=== PATIENT | female | born 1970 | race Two or more races ===

== ENCOUNTER → 2024-04-26 | Day surgery (SDC) | payer OTHER ==
[~2024-04-26] MED LIST: FENTANYL CITRATE/PF 100MCG/2 ML INJ ONE; FERROUS SULFAT325 MG PO; LEVOTHYROXINE50 MCG PO; LIDOCAINE HCL 2% LOCAL INJ 5 ML SDV VIAL INJ ONE; LIPITOR10 MG PO; LOSARTAN POTASS25 MG PO; METFORMIN HCL500 MG PO; PANTOPRAZOLE SO40 MG PO; PROPOFOL IV EMULSION 10 MG/ML 20 ML VIAL ONE
[2024-04-26] MEDS: LACTATED RINGER'S 1,000 ML ONE (13:21)
[2024-04-26 16:10] VITALS: BP 148/95; PULSE 98; RESP 15; TEMP 97.2; O2SAT 98
== END | disposition home or self-care (01) ==
LOC: OR 12:46
PROVIDERS: ATTEND Internal Medicine Gastroenterology
DX: K29.70 Gastritis, unspecified, without bleeding (principal); D13.2 Benign neoplasm of duodenum; K20.90 Esophagitis, unspecified without bleeding; K44.9 Diaphragmatic hernia without obstruction or gangrene; Z86.010 Personal history of colon polyps; D62 Acute posthemorrhagic anemia; I10 Essential (primary) hypertension; E11.9 Type 2 diabetes mellitus without complications; E78.00 Pure hypercholesterolemia, unspecified; E03.9 Hypothyroidism, unspecified; Z79.84 Long term (current) use of oral hypoglycemic drugs; Z79.899 Other long term (current) drug therapy
CPT/HCPCS: 43235; 93005; J2001; J2470; J2704; J3010; J7121; 43239